=== PATIENT | male | born 1980 | race Caucasian/White ===

== ENCOUNTER 2017-01-29 19:49 | Emergency (ER) | payer SELFPAY ==
[~2017-01-29] VITALS: Ht 167.6 cm; Wt 75.0 kg
[2017-01-29 21:30] VITALS: BP 151/87
== END 2017-01-29 21:30 | disposition home or self-care (01) ==
LOC: ED 19:49
DX: R03.0 Elevated blood-pressure reading, without diagnosis of hypertension (principal)